=== PATIENT | female | born 2000 | race African-American/Black ===

== ENCOUNTER 2023-07-03 14:41 | Emergency (ER) | payer OTHER, MEDICAID ==
[~2023-07-03] VITALS: Ht 154.9 cm; Wt 52.0 kg
[2023-07-03 14:53] VITALS: BP 115/77
[2023-07-03] MEDS ORDERED: SILVADENE1 % EX (15:13)
[2023-07-03] MEDS ORDERED: MOTRIN400 MG/TAB PO (15:13)
== END 2023-07-03 16:02 | disposition home or self-care (01) | DRG 935 ==
LOC: ED 14:41
PROC: 2W2DX4Z Dressing of Left Lower Arm using Bandage (ICD-10-PCS; principal; 2023-07-03)
DX: T22.212A Burn of second degree of left forearm, initial encounter (principal); X15.3XXA Contact with hot saucepan or skillet, initial encounter

== ENCOUNTER 2023-07-27 19:50 | Emergency (ER) | payer MEDICAID ==
[~2023-07-27] VITALS: Ht 154.9 cm; Wt 55.8 kg
[~2023-07-27 19:50] MED LIST: MOTRIN400 MG/TAB PO; SILVADENE1 % EX
[2023-07-27 22:23] LABS: URINE BILIRUBIN - DIPSTICK Negative (NEGATIVE); URINE BLOOD DIPSTICK Large (NEGATIVE); URINE GLUCOSE - DIPSTICK Negative (NEGATIVE); URINE KETONE 15 mg/dL (NEGATIVE); URINE NITRITE - DIPSTICK Negative (Negative); URINE PROTEIN - DIPSTICK >=300 mg/dL (NEG-TRACE); URINE SPECIFIC GRAVITY 1.025; URINE UROBILINOGEN - DIPSTICK 0.2 E.U./dL (0.2)
[2023-07-27 22:24] LABS: URINE BACTERIA FEW hpf; URINE COLOR Yellow; URINE LEUK ESTERASE Moderate (NEGATIVE); URINE RBC 50-100 RBC/hpf (0-5); URINE WBC 20-50 WBC/hpf (0-5)
[2023-07-27 22:26] VITALS: BP 110/69
== END 2023-07-27 22:26 | disposition left against medical advice (07) | DRG 696 ==
LOC: ED 19:50 → LWOBS 22:26
PROVIDERS: Family Medicine
DX: R30.0 Dysuria (principal); Z53.21 Procedure and treatment not carried out due to patient leaving prior to being seen by health care provider